=== PATIENT | female | born 1960 | race Caucasian/White ===

== ENCOUNTER 2018-02-09 14:01 | Emergency (ER) | payer OTHER ==
[~2018-02-09] VITALS: Ht 152.4 cm; Wt 70.3 kg
[~2018-02-09 14:01] MED LIST: ADVAIR 100-501 EACH INH; ALLEGRA-D 24 H1 EACH; AMBEREN PO; ASPIR 8181 MG; CALCIUM 600 +1 EAC1; CIPRO500 MG PO; CIPROFLOXACIN500 M1 PO; CRANBERRY400 MG; CRYSELLE1 EACH PO; FISH OIL 1,001000 M2; FLONASE NASAL; HYDROCODONE-AP1 EAC6 PO; LEVOTHYROXINE0.05 MG PO; LEXAPRO20 MG PO; MACRODANTIN100 MG; PHENAZOPYRIDIN200 M2; PROBIOTIC1 EAC1; PROZAC 10 MG CA10 M1 PO; ZYRTEC10 M2 PO; ZYRTEC10 M5 PO
[2018-02-09] MEDS ORDERED: FLOVENT HFA 4444 MCG INH (14:23)
[2018-02-09] MEDS ORDERED: SYNTHROID50 MCG PO (14:23)
[2018-02-09] MEDS ORDERED: LEXAPRO 10 MG T10 M1 PO (14:23)
[2018-02-09 14:27] LABS: URINE BILIRUBIN NEGATIVE (Negative); URINE BLOOD 3+ (Negative); URINE CLARITY CLEAR; URINE COLOR YELLOW; URINE GLUCOSE-RANDOM NEGATIVE (Negative); URINE KETONES NEGATIVE (Negative); URINE LEUKOCYTES-REFLEX NEGATIVE (Negative); URINE NITRITE-REFLEX NEGATIVE (Negative); URINE PROTEIN TRACE (Negative); URINE SPECIFIC GRAVITY >= 1.030 (1.005-1.030); URINE UROBILINOGEN 0.2 E.U./dl (0.2-1.0)
[2018-02-09 14:40] LABS: BACTERIA-REFLEX None Seen /HPF (None Seen); CALCIUM OXALATE 4-10 Moderate /LPF (None Seen); CASTS None Seen /LPF (None Seen); SQUAMOUS 0-3 Few /LPF (0-3); URINE RBC >20 Many /HPF (0-2); URINE WBC-REFLEX 0-5 Rare /HPF (0-5)
[2018-02-09 15:54] VITALS: BP 132/78
== END 2018-02-09 15:55 | disposition home or self-care (01) ==
LOC: M.ERS 14:01
PROVIDERS: Nurse Practitioner Family
DX: R10.30 Lower abdominal pain, unspecified (principal); J45.909 Unspecified asthma, uncomplicated; E03.9 Hypothyroidism, unspecified; Z88.0 Allergy status to penicillin; Z88.5 Allergy status to narcotic agent; Z88.2 Allergy status to sulfonamides; Z88.8 Allergy status to other drugs, medicaments and biological substances